=== PATIENT | male | born 1960 ===

== ENCOUNTER 2021-02-19 12:03 | Emergency (ER) | payer SELFPAY ==
[~2021-02-19] VITALS: Ht 193 cm; Wt 138.7 kg
[2021-02-19 12:21] VITALS: BP 165/98
[2021-02-19] MEDS ORDERED: LIDOCAINE-MPF 1%, 5ML ONE (13:22)
[2021-02-19] MEDS ORDERED: OXYcodone/APAP 5/325MG TABLET ONE (13:22)
[2021-02-19] MEDS ORDERED: OXYcodone/APAP 5/325MG TABLET PO ONE (13:30)
[2021-02-19] MEDS ORDERED: LIDOCAINE 1%, 10ML INFIL ONE (13:30)
== END 2021-02-19 15:16 | disposition home or self-care (01) ==
LOC: ED 14:00
DX: L05.01 Pilonidal cyst with abscess (principal); R21 Rash and other nonspecific skin eruption
CPT/HCPCS: 10080; 99283